=== PATIENT | female | born 1970 ===

== ENCOUNTER 2017-03-16 23:31 | Emergency (ER) | payer SELFPAY ==
--- NOTE | 2017-03-17 00:44 | ED ORDER SUMMARY ---
..... Patient: JAIME BYRNES OrderSheet [facility] VisitID: [id number] [address] [place] [address] 46y, F Registration Date/Time: 03/16/2017 ORDER SHEET Weight: 86.1 kg (stated) Allergies: Aspirin GENERAL ORDERS: Dress Wounds (00:40 03/17/2017 Kiko COLEY) (0:42 HSoule) MEDICATION ORDERS: IV FLUIDS: ORDER SHEET NOTES: [Electronically signed by Marissa Vital (02:07 03/17/2017)] [Electronically signed by Isacc Zambrano MD (16:28 03/19/2017)] [Electronically locked/signed by Marissa Vital (02:07 03/17/2017)]
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
--- NOTE | 2017-03-17 00:44 | ED ORDER SUMMARY ---
..... Patient: JAIME BYRNES OrderSheet [facility] VisitID: [id number] [address] [place] [address] 46y, F Registration Date/Time: 03/16/2017 ORDER SHEET Weight: 86.1 kg (stated) Allergies: Aspirin GENERAL ORDERS: Dress Wounds (00:40 03/17/2017 Kiko COLEY) (0:42 HSoule) MEDICATION ORDERS: IV FLUIDS: ORDER SHEET NOTES: [Electronically signed by Marissa Vital (02:07 03/17/2017)] [Electronically signed by Isacc Zambrano MD (16:28 03/19/2017)] [Electronically locked/signed by Marissa Vital (02:07 03/17/2017)]
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
--- NOTE | 2017-03-19 16:28 | ED MED RECONCILIATION SUMMARY ---
Patient: JAIME BYRNES Medication Reconciliation Report [facility] VisitID: [id number] [address] [place] [address] 46y, F Registration Date/Time: 03/16/2017 Weight: 86.1 kg Height/Length: 65 in. BMI: 31.6 ALLERGIES: Aspirin The patient's Home Medications are listed below: NONE. The source(s) of the original Home Medication information: patient The following Medications were given to the patient in the Emergency Department: None. The following Medications were prescribed to the patient: Hydrocodone/APAP 5mg/325mg: take 1 to 2 orally every 6 hours as needed for pain. Dispense fifteen (15). No refills. -- Isacc Zambrano MD Septra DS 800 mg / 160 mg: take 1 tablet orally every 12 hours for 7 days. Dispense fourteen (14). No refills. Substitution is permissible. -- Isacc Zambrano MD
--- NOTE | 2017-03-19 16:28 | ED MED RECONCILIATION SUMMARY ---
Patient: JAIME BYRNES Medication Reconciliation Report [facility] VisitID: [id number] [address] [place] [address] 46y, F Registration Date/Time: 03/16/2017 Weight: 86.1 kg Height/Length: 65 in. BMI: 31.6 ALLERGIES: Aspirin The patient's Home Medications are listed below: NONE. The source(s) of the original Home Medication information: patient The following Medications were given to the patient in the Emergency Department: None. The following Medications were prescribed to the patient: Hydrocodone/APAP 5mg/325mg: take 1 to 2 orally every 6 hours as needed for pain. Dispense fifteen (15). No refills. -- Isacc Zambrano MD Septra DS 800 mg / 160 mg: take 1 tablet orally every 12 hours for 7 days. Dispense fourteen (14). No refills. Substitution is permissible. -- Isacc Zambrano MD
--- NOTE | 2017-03-19 16:28 | ED MAR SUMMARY ---
..... Medication Administration Record [facility] [address], [place] [id number] Patient: JAIME BYRNES Visit ID: [id number] 46y, F Weight: 86.1 kg Height/Length: 65 in BMI: 31.6 ALLERGIES: Aspirin
--- NOTE | 2017-03-19 16:28 | ED DISCHARGE INSTRUCTIONS ---
Patient: JAIME BYRNES General Instructions [facility] VisitID: [id number] [address] [place] [address] 46y, F Registration Date/Time: 03/16/2017 Multiple second degree thermal coburn to the right forearm and to the dorsum of the right hand and palm of the left hand, to the left thumb, to the left index finger, to the left middle finger, to the left ring finger and to the left little finger. Delayed treatment. Infection present. INSTRUCTIONS Protect burn and keep area clean. Change dressing twice daily. Clean burn with each dressing change using soap and water. Apply Neosporin ointment. Limit use of your right and left hand until better. Warnings: INFECTION: Watch for signs of infection (increasing heat and redness, pus-like drainage, swelling, or increased pain). Return or see your doctor if these signs occur. GENERAL WARNINGS: Return or contact your physician immediately if your condition worsens or changes unexpectedly, if not improving as expected, or if other problems arise. Prescription Medications: Hydrocodone/APAP 5mg/325mg: take 1 to 2 orally every 6 hours as needed for pain. Dispense fifteen (15). No refills. Septra DS 800 mg / 160 mg: take 1 tablet orally every 12 hours for 7 days. Dispense fourteen (14). No refills. Substitution is permissible. Understanding of the discharge instructions verbalized by patient and family. Follow-up with: [facility], , , [address], , [place], [address] Follow up Sunday in three days. Call for the next available appointment. ADDITIONAL INFORMATION Coburn [1', 2', 3'] A burn occurs when skin is exposed to excessive heat, sun, or harsh chemicals. A first degree burn causes redness only, like a sunburn, and heals in a few days. A second degree burn is deeper and causes a blister to form. This may take up to two weeks to heal. A third degree burn damages all layers of the skin and is very serious. It may take a month or more to heal. Home Care On the first day, you may apply a cool compress (small towel soaked in cool water) to relieve severe pain. If a bandage was applied, change it once a day, unless told otherwise. If the bandage sticks, soak it off under warm running water. Before changing a bandage, wash your hands. Then, wash the area with soap and water to remove any cream, ointment, ooze or scab. You may do this in a sink, under a tub faucet or in the shower. Rinse off the soap and pat dry with a clean towel. Look for signs of infection listed below. Reapply any prescribed cream/ointment to prevent infection and keep the bandage from sticking. Cover the burn with a non-stick gauze. Then wrap it with the bandage material. If the bandage becomes wet or soiled, change it as soon as possible. Use acetaminophen (Tylenol) or ibuprofen (Motrin, Advil) to control pain, unless another pain medicine was prescribed. [NOTE: If you have chronic liver or kidney disease or ever had a stomach ulcer or GI bleeding, talk with your doctor before using these medications.] Follow Up with your doctor or as advised by our staff. Most coburn heal without infection. Occasionally, an infection may occur despite proper treatment. Therefore, check the burn daily for the signs of infection listed below. Get Prompt Medical Attention if any of the following signs of infection occur: Increasing pain in the wound Increasing redness, swelling or pus coming from the wound Red streaks in your skin coming from the burn Fever of 100.4 F (38 C) or higher, or as directed by your healthcare provider You have been given the following additional information: Burn, Thermal, (1'2'3') W/ Dressing Limit use of your right and left hand until better. (Electronically signed by Isacc Zambrano MD 03/19/2017 16:28)
--- NOTE | 2017-03-19 16:28 | ED DISCHARGE INSTRUCTIONS ---
Patient: JAIME BYRNES General Instructions [facility] VisitID: [id number] [address] [place] [address] 46y, F Registration Date/Time: 03/16/2017 Multiple second degree thermal coburn to the right forearm and to the dorsum of the right hand and palm of the left hand, to the left thumb, to the left index finger, to the left middle finger, to the left ring finger and to the left little finger. Delayed treatment. Infection present. INSTRUCTIONS Protect burn and keep area clean. Change dressing twice daily. Clean burn with each dressing change using soap and water. Apply Neosporin ointment. Limit use of your right and left hand until better. Warnings: INFECTION: Watch for signs of infection (increasing heat and redness, pus-like drainage, swelling, or increased pain). Return or see your doctor if these signs occur. GENERAL WARNINGS: Return or contact your physician immediately if your condition worsens or changes unexpectedly, if not improving as expected, or if other problems arise. Prescription Medications: Hydrocodone/APAP 5mg/325mg: take 1 to 2 orally every 6 hours as needed for pain. Dispense fifteen (15). No refills. Septra DS 800 mg / 160 mg: take 1 tablet orally every 12 hours for 7 days. Dispense fourteen (14). No refills. Substitution is permissible. Understanding of the discharge instructions verbalized by patient and family. Follow-up with: [facility], , , [address], , [place], [address] Follow up Sunday in three days. Call for the next available appointment. ADDITIONAL INFORMATION Coburn [1', 2', 3'] A burn occurs when skin is exposed to excessive heat, sun, or harsh chemicals. A first degree burn causes redness only, like a sunburn, and heals in a few days. A second degree burn is deeper and causes a blister to form. This may take up to two weeks to heal. A third degree burn damages all layers of the skin and is very serious. It may take a month or more to heal. Home Care On the first day, you may apply a cool compress (small towel soaked in cool water) to relieve severe pain. If a bandage was applied, change it once a day, unless told otherwise. If the bandage sticks, soak it off under warm running water. Before changing a bandage, wash your hands. Then, wash the area with soap and water to remove any cream, ointment, ooze or scab. You may do this in a sink, under a tub faucet or in the shower. Rinse off the soap and pat dry with a clean towel. Look for signs of infection listed below. Reapply any prescribed cream/ointment to prevent infection and keep the bandage from sticking. Cover the burn with a non-stick gauze. Then wrap it with the bandage material. If the bandage becomes wet or soiled, change it as soon as possible. Use acetaminophen (Tylenol) or ibuprofen (Motrin, Advil) to control pain, unless another pain medicine was prescribed. [NOTE: If you have chronic liver or kidney disease or ever had a stomach ulcer or GI bleeding, talk with your doctor before using these medications.] Follow Up with your doctor or as advised by our staff. Most coburn heal without infection. Occasionally, an infection may occur despite proper treatment. Therefore, check the burn daily for the signs of infection listed below. Get Prompt Medical Attention if any of the following signs of infection occur: Increasing pain in the wound Increasing redness, swelling or pus coming from the wound Red streaks in your skin coming from the burn Fever of 100.4 F (38 C) or higher, or as directed by your healthcare provider You have been given the following additional information: Burn, Thermal, (1'2'3') W/ Dressing Limit use of your right and left hand until better. (Electronically signed by Isacc Zambrano MD 03/19/2017 16:28)
--- NOTE | 2017-03-19 16:28 | ED MAR SUMMARY ---
..... Medication Administration Record [facility] [address] [place], [place] [id number] Patient: JAIME BYRNES Visit ID: [id number] 46y, F Weight: 86.1 kg Height/Length: 65 in BMI: 31.6 ALLERGIES: Aspirin
== END 2017-03-17 01:00 | disposition home or self-care (01) ==
LOC: ED SRH 23:31
DX: T22.211A Burn of second degree of right forearm, initial encounter (principal); T23.251A Burn of second degree of right palm, initial encounter; T23.252A Burn of second degree of left palm, initial encounter; T23.232A Burn of second degree of multiple left fingers (nail), not including thumb, initial encounter; X08.8XXA Exposure to other specified smoke, fire and flames, initial encounter; Y93.9 Activity, unspecified; Y92.9 Unspecified place or not applicable; Y99.9 Unspecified external cause status